=== PATIENT | male | born 1940 | race Caucasian/White ===

== ENCOUNTER 2021-11-12 10:45 | Emergency (ER) | payer MEDICARE, SELFPAY ==
--- NOTE | ~2021-11-12 | US_ITS ---
EXAMINATION: US VENOUS ULTRASOUND WITH DOPPLER LOWER EXTREMITY, LEFT CLINICAL INFORMATION: Swelling and pain. History of recent surgery. COMPARISON: None TECHNIQUE: Ultrasound of the deep veins is performed from the hip to the calf with compression sonography and color and pulse Doppler assessment. Spectral analysis with color-flow imaging is performed. FINDINGS: There is normal venous compression and respiratory variation and augmented flow. The visualized common femoral vein, superficial femoral vein, profunda femoral vein, popliteal vein, and the trifurcation region shows no evidence of deep venous thrombosis. There is no significant popliteal fossa cyst. US/US venous duplex LE LT IMPRESSION: No DVT demonstrated in the left lower extremity.
--- NOTE | ~2021-11-12 | XR_ITS ---
EXAMINATION: XR HIP, LEFT CLINICAL INFORMATION: Status post surgery COMPARISON: None TECHNIQUE: Three views of the left hip. XR/XR hip LT min 2V FINDINGS/IMPRESSION: A subcapital fracture of the left femoral neck is present with 3 screws extending through this. No other fractures are seen. Radiation seeds are noted throughout the prostate.
[2021-11-12 11:27] VITALS: BP 124/79; PULSE 83; RESP 19; TEMP 36.6; O2SAT 100; BMI 28.2
--- NOTE | 2021-11-12 12:12 | ED.LOWEXIN ---
HPI - Extremity Injury (Lower) General Chief Complaint: Extremity Injury, Lower Stated Complaint: Fall Time Seen by Provider: 11/12/21 11:37 Source: patient Mode of arrival: wheelchair Limitations: no limitations History of Present Illness HPI Narrative: 81-year-old male coming from home with a history of hypertension, GERD, hyperlipidemia, prostate cancer currently undergoing radiation and recent left femoral neck fracture requiring repair 11/08 at [facility]. Patient tells me that he travels between [place], [place] and he quite frequently due to his occupation. He tells me that his providers are at [facility] and this is who he sees for his primary care and urologist. Patient tells me that he went there for primary care visit about 7 days ago and was complaining of some left hip pain after fall. He had x-ray that showed a femoral neck fracture any underwent repair on 11/08. The patient tells me that on 11/10 he flew home to [place] and has been doing his own home exercises. He is here complaining of left hip pain and states I feel like I overdid my exercises. No new fall or trauma. He reports pain in the left hip which radiates although they down to the foot. He has been compliant with taking 81 mg aspirin he tells me he plans on following back up with Orthopedics in the [facility]. Related Data Allergies Allergy/AdvReac Type Severity Reaction Status Date / Time Unable to Assess Allergy Verified 11/12/21 12:04 Review of Systems Review of Systems: Yes all other systems are reviewed and are negative Constitutional: Constitutional: Reports no additional constitutional complaints, Denies body ache(s), Denies chills, Denies fever(s), Denies headache(s) and Denies weakness Eyes: Eyes: Reports no additional eye complaints and Denies change in vision ENT: Reports system reviewed and no additional complaints, except as documented, Denies dizziness, Denies headache(s), Denies nasal congestion, Denies nasal discharge and Denies neck pain Cardiovascular: Cardiovascular: Reports no additional cardiovascular complaints, Denies chest pain, Denies leg edema and Denies dyspnea Respiratory: Respiratory: Reports no additional respiratory complaints, Denies cough and Denies dyspnea Gastrointestinal: Gastrointestinal: Reports no additional gastrointestinal complaints, Denies abdominal pain, Denies diarrhea, Denies nausea and Denies vomiting Genitourinary: Genitourinary: Denies urinary incontinence Musculoskeletal: Musculoskeletal: Reports no additional musculoskeletal complaints, Denies back pain, Reports arthralgias, Denies joint swelling, Denies neck pain, Denies numbness and Denies tingling Integumentary/Breasts: Skin/Breast: Reports system reviewed and no additional complaints, except as docu and Denies rash Neurologic: Reports system reviewed and no additional complaints, except as documented, Denies Abnormal speech present, Denies dizziness, Denies headache(s), Denies numbness, Denies tingling and Denies weakness PMFSH Past Medical History Attestation statement: The following information was validated with the patient. Source: old records reviewed and nursing notes reviewed Medical History HTN (hypertension) Surgical History Status post hip surgery Social History Social History Advance Directives: No Advance Directives Information Provided: No Physical Exam Vital Signs: Vital Signs: Last Vital Signs Temp 98 F 11/12/21 11:27 Pulse 83 11/12/21 11:27 Resp 19 11/12/21 11:27 BP 124/79 11/12/21 11:27 Pulse Ox 100 11/12/21 11:27 BMI result Body Mass Index 28.2 Const: General: cooperative, healthy appearing, comfortable and no acute distress Orientation/consciousness: patient oriented x3 Limitations: no limitations HENMT: Head: Yes normal to inspection Ears: hearing grossly normal bilaterally General nose exam: Normal external nose present Face and sinus: Yes normal facial exam Mouth: Normal oral and palatal mucosa present Throat: Yes posterior oropharynx normal Eyes: General: appearance normal, both eyes and all related structures Pupils: Equal, round and reactive pupils present Neck: Neck: Yes normal visual inspection Chest: Chest palpation & inspection: normal inspection of the chest Resp: Effort & Inspection: normal respiratory effort Auscultation: clear to auscultation bilaterally Cardio: Rate: regular rate Rhythm: regular rhythm Peripheral pulses: Peripheral pulses 2+ throughout GI: Inspection: Yes normal to inspection Palpation (GI): Soft to palpation and nontender Auscultation: normal bowel sounds Back/Spine/Pelvis: Thoracic/Lumbar Spine: thoracic and lumbar spine normal to inspection Skin: General skin exam: no rashes or lesions noted Neuro: General: patient oriented x3, no focal motor deficits and normal sensation to monofilament Cranial nerves: Yes Equal, round and reactive pupils present Cognition (Neuro): normal cognition Speech: No Abnormal speech present Gait exam (Neuro): Normal gait present Motor exam (neuro): 5/5 motor strength present throughout Extrem: Other: To the left lateral hip there is a surgical incision noted with sutures. There is a small area of ecchymosis around the site with mild tenderness. There is no obvious deformity, shortening or rotation of the limb. There is some slight swelling of the calf and pain is worsened with dorsiflexion and plantar flexion of the left foot. No warmth or redness of the lower extremity. General: Yes normal to inspection Course Course Course Narrative: 81-year-old male here with complaints of left hip and left lower leg pain after having hip surgery on November 08 the at the [facility]. On exam the patient has some tenderness over the hip but there is no obvious shortening, deformity or rotation. Also has some slight swelling to the calf and pain that is worsened with dorsiflexion or plantar flexion of the foot. He has been taking aspirin 81 mg as prophylaxis for DVT. Will check ultrasound and x-ray 1315-x-rays show A subcapital fracture of the left femoral neck is present with 3 screws extending through this. No other fractures are seen. Radiation seeds are noted throughout the prostate. No new fracture or dislocation Ultrasound negative for DVT Will discharge patient home with plan for his follow-up with Orthopedics at the [facility]. Reviewed worrisome signs and symptoms of when to return to the emergency department. Comfortable discharge home. MDM - Extremity Injury (Lower) Medical Records Attestation: I reviewed the patient's medical records. Lab Data Attestation: I reviewed the patient's lab results. Imaging Data left hip x-ray: Attestation: I personally reviewed and interpreted this imaging study as follows: Radiologist's impression: [address] [address] XRay Report Signed Patient: Maciej Bowles MR#: [id number] : 1940 Acct:[id number] Age/Sex: 81 / M ADM Date: 11/12/21 Loc: HO.ED Attending Dr: Ordering Physician: Adilson Pugh MD Date of Service: 11/12/21 Procedure(s): XR hip LT min 2V Accession Number(s): [id number] cc: Adilson Pugh MD~ EXAMINATION: XR HIP, LEFT CLINICAL INFORMATION: Status post surgery COMPARISON: None TECHNIQUE: Three views of the left hip. XR/XR hip LT min 2V FINDINGS/IMPRESSION: A subcapital fracture of the left femoral neck is present with 3 screws extending through this. No other fractures are seen. Radiation seeds are noted throughout the prostate. Venous US: Attestation: I personally reviewed and interpreted this imaging study as follows: Radiologist's impression: [place] [id number] Ultrasound Report Signed Patient: Maciej Bowles MR#: [id number] : 1940 Acct:[id number] Age/Sex: 81 / M ADM Date: 11/12/21 Loc: .ED Attending Dr: Ordering Physician: Lucia Gonzalez NP Date of Service: 11/12/21 Procedure(s): US venous duplex LE LT Accession Number(s): [id number] cc: Lucia Gonzalez NP~ EXAMINATION:? US VENOUS ULTRASOUND WITH DOPPLER LOWER EXTREMITY, LEFT CLINICAL INFORMATION:? Swelling and pain. History of recent surgery. COMPARISON:? None TECHNIQUE: Ultrasound of the deep veins is performed from the hip to the calf with compression sonography and color and pulse Doppler assessment. Spectral analysis with color-flow imaging is performed. FINDINGS: There is normal venous compression and respiratory variation and augmented flow. The visualized common femoral vein, superficial femoral vein, profunda femoral vein, popliteal vein, and the trifurcation region shows no evidence of deep venous thrombosis. ? There is no significant popliteal fossa cyst. US/US venous duplex LE LT IMPRESSION: No DVT demonstrated in the left lower extremity. Discharge Plan Discharge Clinical Impression: Muscle strain of left hip Patient Disposition: Home, Self-Care Instructions: Muscle Strain (ED) Additional Instructions: X-ray show no new fractures or dislocation Ultrasound shows no evidence of blood clot Follow-up with your outpatient providers Referrals: Physician,Nonstaff [Primary Care Provider] - 2 days Interventions: ED Discharge Assessment Last Done: 11/12/21 13:21 Discharge Date/Time: 11/12/21 13:23
== END 2021-11-12 13:23 | disposition home or self-care (01) ==
PROVIDERS: Emergency Provider Internal Medicine
DX: S76.012A Strain of muscle, fascia and tendon of left hip, initial encounter (principal); X58.XXXA Exposure to other specified factors, initial encounter; M25.552 Pain in left hip; M79.662 Pain in left lower leg; I10 Essential (primary) hypertension; Z79.82 Long term (current) use of aspirin; Y93.9 Activity, unspecified; Y92.9 Unspecified place or not applicable; Y99.9 Unspecified external cause status
CPT/HCPCS: 73502; 93971; 99283; 99284